=== PATIENT | male | born 1970 | race Caucasian/White ===

== ENCOUNTER 2025-01-12 06:37 | Day surgery (SDC) | payer OTHER ==
[~2025-01-12] VITALS: Ht 182.9 cm; Wt 74.0 kg
[~2025-01-12 06:37] MED LIST: ALBU90OI INH; FLUT.05NI; OMEP20ER PO
[2025-01-12] MEDS ORDERED: INCRUSE ELLIPTA 62.5 (07:09)
== END 2025-01-12 09:31 | disposition home or self-care (01) ==
LOC: ORSCSDS 06:37
PROVIDERS: Specialist
PROC: 0DB78ZX Excision of Stomach, Pylorus, Via Natural or Artificial Opening Endoscopic, Diagnostic (ICD-10-PCS; principal; 2025-01-12 08:15)
PROC: 0DB58ZX Excision of Esophagus, Via Natural or Artificial Opening Endoscopic, Diagnostic (ICD-10-PCS; principal; 2025-01-12 08:15)
PROC: 0DBK8ZX Excision of Ascending Colon, Via Natural or Artificial Opening Endoscopic, Diagnostic (ICD-10-PCS; principal; 2025-01-12 08:15)
DX: Z12.11 Encounter for screening for malignant neoplasm of colon (principal); K21.9 Gastro-esophageal reflux disease without esophagitis; K29.70 Gastritis, unspecified, without bleeding; K63.5 Polyp of colon; K74.60 Unspecified cirrhosis of liver; R74.8 Abnormal levels of other serum enzymes; K44.9 Diaphragmatic hernia without obstruction or gangrene; K64.8 Other hemorrhoids; K64.4 Residual hemorrhoidal skin tags; K57.30 Diverticulosis of large intestine without perforation or abscess without bleeding; Z87.891 Personal history of nicotine dependence; J44.9 Chronic obstructive pulmonary disease, unspecified; Z79.899 Other long term (current) drug therapy
CPT/HCPCS: 88305; 88342; J2704; J7120